=== PATIENT | male | born 1960 | race Caucasian/White ===

== ENCOUNTER 2016-11-20 08:14 | Inpatient (IN) | payer OTHER ==
[~2016-11-20] VITALS: Ht 162.6 cm; Wt 81.8 kg
[~2016-11-20 08:14] MED LIST: ZANAFLEX4 M1 PO
[2016-11-20 09:43] LABS: EOSINOPHIL (%) 0 % (0-5); IMMATURE GRANULOCYTE (%) 0.4 % (0.0-0.7); IMMATURE GRANULOCYTE COUNT 0.1 K/uL; INSTRUMENT ABS NEUTROPHIL CT 12.3 K/uL; LYMPHOCYTE COUNT 0.9 K/uL (1.0-2.8); MCH 30.8 PG (29.0-34.0); MCHC 31.7 G/DL (30.0-36.0); MEAN PLAT.VOLUME 9.2 uM^3 (9.0-12.4); MONOCYTE (%) 6.3 % (3-12); MONOCYTE COUNT 0.9 K/uL (0-0.8); NEUTROPHIL (%) 86.5 % (45-76); NEUTROPHIL COUNT 12.3 K/uL (1.8-6.4); PLATELET COUNT 264 K/uL (156-360); RBC DIS.WIDTH-CV 13.4 % (11.8-14.6); RBC DIS.WIDTH-SD 48.1 % (39-53); RED BLOOD COUNT 4.74 M/uL (4.00-5.50); WHITE BLOOD COUNT 14.2 K/uL (4.1-10.2)
[2016-11-20 09:58] LABS: CHLORIDE 98 mEq/L (99-109); POTASSIUM 4.2 mEq/L (3.7-5.4); SODIUM 136 mEq/L (136-147)
[2016-11-20 10:00] LABS: GLUCOSE 122 mg/dL (70-99)
[2016-11-20 10:01] LABS: ANION GAP 13 MEQ/L (2-14)
[2016-11-20 10:02] LABS: TOTAL BILIRUBIN 0.6 mg/dL (0.0-1.0)
[2016-11-20 10:03] LABS: ALKALINE PHOSPHATASE 94 IU/L (3-129)
[2016-11-20 10:04] LABS: GFR ESTIMATE (CALCULATED) > 59 mL/min/
[2016-11-20 10:05] LABS: UREA NITROGEN (BUN) 8 mg/dL (9-23)
[2016-11-20 10:13] LABS: CK-MB 68.5 ng/mL (0.0-4.9)
[2016-11-20 10:18] LABS: TOTAL CK 9245 IU/L (1-294)
[2016-11-20 10:19] LABS: CREATINE KINASE 9245 IU/L (1-294)
[2016-11-20 11:17] LABS: SERUM ETHYL ALCOHOL < 10 mg/dL
[2016-11-20 11:28] LABS: ADD MIUA? YES; BILIRUBIN NEGATIVE; BLOOD LARGE; COLOR YELLOW ((YELLOW)); GLUCOSE (STRIP) NEGATIVE; KETONES NEGATIVE; LEUKOCYTES NEGATIVE; NITRITE NEGATIVE; PROTEIN (STRIP) 30; SPECIFIC GRAVITY 1.015 (1.000-1.030); UROBILINOGEN 0.2 MG/DL (0.2-1.0)
[2016-11-20 11:32] LABS: BACTERIA NONE SEEN /HPF; EPITHELIAL CELLS NONE SEEN /HPF; MUCUS TRACE /LPF; RED BLOOD CELLS 0-5 /HPF (0-5); UCUL ADDED? NO; WHITE BLOOD CELLS 0-5 /HPF (0-5)
[2016-11-20 11:36] LABS: THC CANNABINOIDS NEGATIVE (50 ng/mL)
[2016-11-20 11:37] LABS: ADD MEDTOX COMMENT Y; AMPHETAMINE NEGATIVE (500 ng/mL); BARBITURATES NEGATIVE (200 ng/mL); BENZODIAZEPINES PRESUMPTIVE POSITIVE (150 ng/mL); COCAINE NEGATIVE (150 ng/mL); INTERNAL CONTROLS VALID? YES; METHADONE NEGATIVE (200 ng/mL); METHAMPHETAMINE NEGATIVE (500 ng/mL); OPIATES (MORPHINE) PRESUMPTIVE POSITIVE (100 ng/mL); OXYCODONE PRESUMPTIVE POSITIVE (100 ng/mL); PHENCYCLIDINE NEGATIVE (25 ng/mL); PROPOXYPHENE NEGATIVE (300 ng/mL); TRICYCLIC ANTIDEPRESSANTS NEGATIVE (300 ng/mL)
[2016-11-20 11:52] LABS: D-DIMER ELISA 0.82 mg/L FEU (< 0.57)
[2016-11-20 12:17] LABS: TROP-I INTERPRETATION NEGATIVE; TROPONIN-I 0.05 ng/mL (0.0-0.30)
[2016-11-20] MEDS ORDERED: TIZANIDINE HCL4 MG PO (12:33)
[2016-11-20] MEDS ORDERED: SYMBICORT60 INHALAT IH (12:34)
[2016-11-20] MEDS ORDERED: ALPRAZOLAM0.5 MG PO (12:34)
[2016-11-20] MEDS ORDERED: ZANAFLEX4 MG PO (12:34)
[2016-11-20] MEDS ORDERED: OXYCODONE HCL E20 MG PO (12:34)
[2016-11-20] MEDS ORDERED: GABAPENTIN600 MG PO (12:35)
[2016-11-20] MEDS ORDERED: OXYCODONE HCL5 MG PO (12:35)
[2016-11-20] MEDS ORDERED: FOLIC ACID1 MG PO (12:35)
[2016-11-20] MEDS ORDERED: ATORVASTATIN CA20 MG PO (12:35)
[2016-11-20] MEDS ORDERED: CYANOCOBAL1000 MCG/2 IM (12:36)
[2016-11-20 12:42] LABS: PROLACTIN 7.5 NG/ML
[2016-11-20 13:18] VITALS: BP 159/88
[2016-11-20 13:55] LABS: BENZODIAZEPINES, URINE SCREEN POSITIVE (200 ng/mL)
[2016-11-20 15:45] VITALS: BP 158/86
[2016-11-20 16:32] LABS: TROP-I INTERPRETATION NEGATIVE; TROPONIN-I 0.04 ng/mL (0.0-0.30)
[2016-11-20 19:58] VITALS: BP 153/79
[2016-11-20 23:49] LABS: TROP-I INTERPRETATION NEGATIVE; TROPONIN-I 0.03 ng/mL (0.0-0.30)
[2016-11-21] VITALS (8 sets, daily range): BP systolic 102–173; BP diastolic 55–82
[2016-11-21 07:43] LABS: MCH 30.7 PG (29.0-34.0); MEAN PLAT.VOLUME 9.2 uM^3 (9.0-12.4); PLATELET COUNT 213 K/uL (156-360); RBC DIS.WIDTH-CV 13.5 % (11.8-14.6); RBC DIS.WIDTH-SD 47.9 % (39-53); RED BLOOD COUNT 4.27 M/uL (4.00-5.50)
[2016-11-21 07:58] LABS: WHITE BLOOD COUNT 9.4 K/uL (4.1-10.2)
[2016-11-21 09:37] LABS: CK-MB 28.9 ng/mL (0.0-4.9)
[2016-11-21 09:42] LABS: ANION GAP 8 MEQ/L (2-14); CHLORIDE 103 MEQ/L (99-109); CREATINE KINASE 8687 IU/L (1-294); GFR ESTIMATE (CALCULATED) > 59 mL/min/; GLUCOSE 105 mg/dL (70-99); POTASSIUM 4.3 MEQ/L (3.7-5.4); SAMPLE HEMOLYSIS CHECK 0; SAMPLE ICTERIC CHECK 0; SAMPLE LIPEMIA CHECK 0; SODIUM 139 MEQ/L (136-147); TOTAL CK 8687 IU/L (1-294); UREA NITROGEN (BUN) 4 mg/dL (9-23)
[2016-11-22 03:43] VITALS: BP 153/73
[2016-11-22 05:28] LABS: HEMATOCRIT 36.3 % (38.0-50.0); MCH 32.4 PG (29.0-34.0); MCHC 33.6 G/DL (30.0-36.0); MCV 96.5 FL (86-99); MEAN PLAT.VOLUME 9.3 uM^3 (9.0-12.4); PLATELET COUNT 189 K/uL (156-360); RBC DIS.WIDTH-CV 13.5 % (11.8-14.6); RED BLOOD COUNT 3.76 M/uL (4.00-5.50); WHITE BLOOD COUNT 7.6 K/uL (4.1-10.2)
[2016-11-22 06:07] LABS: ANION GAP 7 MEQ/L (2-14); CHLORIDE 107 MEQ/L (99-109); GFR ESTIMATE (CALCULATED) > 59 mL/min/; GLUCOSE 105 mg/dL (70-99); POTASSIUM 3.8 MEQ/L (3.7-5.4); SAMPLE HEMOLYSIS CHECK 0; SAMPLE ICTERIC CHECK 0; SAMPLE LIPEMIA CHECK 0; SODIUM 139 MEQ/L (136-147); UREA NITROGEN (BUN) 5 mg/dL (9-23)
[2016-11-22 06:08] LABS: CREATINE KINASE 5225 IU/L (1-294)
[2016-11-22 07:18] VITALS: BP 139/86
[2016-11-22 12:11] VITALS: BP 121/65
[2016-11-22 15:13] VITALS: BP 113/83
[2016-11-22 19:40] VITALS: BP 144/74
[2016-11-23 00:16] VITALS: BP 106/73
[2016-11-23 06:08] LABS: ANION GAP 7 MEQ/L (2-14); CHLORIDE 107 MEQ/L (99-109); GFR ESTIMATE (CALCULATED) > 59 mL/min/; GLUCOSE 100 mg/dL (70-99); POTASSIUM 3.9 MEQ/L (3.7-5.4); SAMPLE HEMOLYSIS CHECK 0; SAMPLE ICTERIC CHECK 0; SAMPLE LIPEMIA CHECK 0; SODIUM 139 MEQ/L (136-147); UREA NITROGEN (BUN) 5 mg/dL (9-23)
[2016-11-23 06:10] LABS: CREATINE KINASE 3491 IU/L (1-294)
[2016-11-23 08:18] VITALS: BP 150/74
[2016-11-23] MEDS ORDERED: CLOPIDOGREL75 MG PO (09:44)
[2016-11-23] MEDS ORDERED: NICOTINE PATCH1 EAC2 TD (09:44)
== END 2016-11-23 10:56 | disposition home or self-care (01) | DRG 312 ==
LOC: EME 08:14 → 5SOUTH 10:46 → EDOF 10:46 → 5SOUTH 13:05
PROVIDERS: Emergency Medicine; Hospitalist; Internal Medicine
DX: R55 Syncope and collapse (principal); F11.20 Opioid dependence, uncomplicated; R56.9 Unspecified convulsions; M62.82 Rhabdomyolysis; G62.9 Polyneuropathy, unspecified; D72.829 Elevated white blood cell count, unspecified; J44.9 Chronic obstructive pulmonary disease, unspecified; R00.0 Tachycardia, unspecified; G89.29 Other chronic pain; F17.200 Nicotine dependence, unspecified, uncomplicated; M54.9 Dorsalgia, unspecified; G40.909 Epilepsy, unspecified, not intractable, without status epilepticus; R52 Pain, unspecified; W06.XXXA Fall from bed, initial encounter; Y93.9 Activity, unspecified; Y92.003 Bedroom of unspecified non-institutional (private) residence as the place of occurrence of the external cause; Z88.8 Allergy status to other drugs, medicaments and biological substances; Z88.0 Allergy status to penicillin
CPT/HCPCS: 70450; 71010; 71275; 73080; 73090; 73130; 73502; 80048; 80053; 80306 90; 81003; 82550; 82550 91; 82553; 83605; 84146; 84484; 84999; 85025; 85027; 85379; 87040; 93005; 93306; 93880; 94640; 94640 76; 94760; 94799; 95819; 99202; G0480; J1650; J2270; J7030